=== PATIENT | female | born 1945 | race Caucasian/White ===

== ENCOUNTER 2024-03-20 14:34 | Emergency (ER) | payer SELFPAY ==
[2024-03-20 15:10] LABS: #Lymphocytes 1.4 thou/uL (1.20-3.40); #Monocytes 0.4 thou/uL (0.11-0.59); #Neutrophils 4.6 thou/uL (1.40-6.50); %Basophils 0.7 % (0.0-1.0); %Monocytes 6.7 % (0.0-10.0); %Neutrophils 71.7 % (42.0-75.0); Hematocrit 50.2 % (36.0-47.0); Hemoglobin 15.8 g/dL (12.0-16.0); Mean Corpuscular HGB CONC 31.4 g/dL (32.0-36.0); Mean Corpuscular Hemoglobin 28.4 pg (27.0-31.0); Mean Corpuscular Volume 90.3 fl (78.0-98.0); Mean Platelet Volume 8.2 fL (7.4-10.4); Platelet Count 237 10x3/uL (130-400); RBC Distribution Width 15.5 % (11.5-14.5); Red Blood Cell (RBC) Count 5.56 mill/uL (4.20-5.40); White Blood Cell (WBC) Count 6.4 10x3/uL (4.8-10.8)
[2024-03-20 15:22] LABS: Anion Gap 13 mmol/L (10-20); BUN (Urea Nitrogen) 10 mg/dL (9.8-20.1); Calc. Creatinine Clearance 0 mL/min (70-130); Calcium 9.9 mg/dL (7.8-10.44); Carbon Dioxide 34 mmol/L (23-31); Chloride 96 mmol/L (98-107); Estimated GFR 81; Glucose 99 mg/dL (83-110); Potassium 2.8 mmol/L (3.5-5.1); Sodium 140 mmol/L (136-145)
[2024-03-20] MEDS ORDERED: Potassium Chloride 20 MEQ TAB ONE (15:47)
== END 2024-03-20 16:13 | disposition home or self-care (01) ==
LOC: NAV ERS 14:34
DX: R60.0 Localized edema (principal); E87.6 Hypokalemia; I10 Essential (primary) hypertension; J44.9 Chronic obstructive pulmonary disease, unspecified; E78.5 Hyperlipidemia, unspecified; F17.210 Nicotine dependence, cigarettes, uncomplicated; Z79.899 Other long term (current) drug therapy; Z79.51 Long term (current) use of inhaled steroids
CPT/HCPCS: 36415; 71045; 80048; 83880; 85025